=== PATIENT | female | born 1955 | race Caucasian/White ===

== ENCOUNTER 2017-06-02 14:25 | Emergency (ER) | payer OTHER ==
[~2017-06-02] VITALS: Ht 160 cm; Wt 70.3 kg
[2017-06-02 16:00] LABS: EOSINOPHIL (%) 1.4 % (0-5); EOSINOPHIL COUNT 0.1 K/uL (0-0.3); HEMATOCRIT 38.1 % (36.0-46.0); IMMATURE GRANULOCYTE (%) 0.3 % (0.0-0.7); INSTRUMENT ABS NEUTROPHIL CT 5.4 K/uL; LYMPHOCYTE COUNT 1.9 K/uL (1.0-2.8); MCH 29.3 PG (29.0-34.0); MCHC 34.1 G/DL (30.0-36.0); MEAN PLAT.VOLUME 7.9 uM^3 (9.5-12.4); MONOCYTE (%) 6.5 % (3-12); MONOCYTE COUNT 0.5 K/uL (0-0.8); NEUTROPHIL (%) 67.8 % (45-76); NEUTROPHIL COUNT 5.4 K/uL (1.8-6.4); PLATELET COUNT 399 K/uL (156-360); RBC DIS.WIDTH-CV 12.9 % (11.8-14.6); RBC DIS.WIDTH-SD 40.3 % (39-53); RED BLOOD COUNT 4.43 M/uL (3.80-5.20)
[2017-06-02 16:23] LABS: CHLORIDE 94 mEq/L (99-109); POTASSIUM 3.1 mEq/L (3.7-5.4); SODIUM 133 mEq/L (136-147)
[2017-06-02 16:25] LABS: GLUCOSE 79 mg/dL (70-99)
[2017-06-02 16:26] LABS: ANION GAP 13 MEQ/L (2-14)
[2017-06-02 16:29] LABS: GFR ESTIMATE (CALCULATED) > 59 mL/min/
[2017-06-02 16:30] LABS: UREA NITROGEN (BUN) 7 mg/dL (9-23)
[2017-06-02 19:05] VITALS: BP 121/73
== END 2017-06-02 19:07 | disposition home or self-care (01) ==
LOC: EME 14:25
PROVIDERS: Physician Assistant
DX: R06.00 Dyspnea, unspecified (principal); E87.6 Hypokalemia; R60.0 Localized edema; R05 Cough
CPT/HCPCS: 71020; 73590; 73630; 80048; 83880; 85025; 93005; 93971; 99281; 99284